=== PATIENT | male | born 1950 | race Caucasian/White ===

== ENCOUNTER 2018-06-26 22:47 | Emergency (ER) | payer OTHER ==
[~2018-06-26] VITALS: Ht 175.3 cm; Wt 68.0 kg
[2018-06-26] MEDS ORDERED: TETANUS-DIPTH-ACEL PERTUSSIS 0.5ML SYRG IM ONE (23:15)
[2018-06-26] MEDS ORDERED: MORPHINE SULFATE 4 MG/ML SYR/VIAL IV ONE (23:15)
[2018-06-26] MEDS ORDERED: ONDANSETRON HCL 4 MG/2 ML VIAL IV ONE (23:15)
[2018-06-26] MEDS ORDERED: MORPHINE SULF INJ 2 MG/ML SYRINGE 1ML ONE (23:33)
[2018-06-27] MEDS ORDERED: SODIUM CHLORIDE 0.9% 1,000 ML IV ONE (00:30)
[2018-06-27] MEDS ORDERED: MORPHINE SULF INJ 2 MG/ML SYRINGE 1ML ONE (00:56)
[2018-06-27] MEDS ORDERED: MORPHINE SULFATE 4 MG/ML SYR/VIAL IV ONE (01:15)
[2018-06-27 03:39] VITALS: BP 129/77
== END 2018-06-27 03:50 | disposition short-term general hospital (02) ==
LOC: ER 22:50
DX: T23.201A Burn of second degree of right hand, unspecified site, initial encounter (principal); T21.24XA Burn of second degree of lower back, initial encounter; T21.25XA Burn of second degree of buttock, initial encounter; T31.11 Burns involving 10-19% of body surface with 10-19% third degree burns; X03.8XXA Other exposure to controlled fire, not in building or structure, initial encounter; Y93.89 Activity, other specified; Y92.89 Other specified places as the place of occurrence of the external cause; Y99.8 Other external cause status
CPT/HCPCS: 36600; 71045; 82805; 90471; 90715; 96374; 96375; 96376; 99291; J2270; J2405; J7030

== ENCOUNTER 2018-10-08 17:39 | Emergency (ER) | payer OTHER ==
[~2018-10-08] VITALS: Ht 167.6 cm; Wt 68.0 kg
[2018-10-08] MEDS ORDERED: cloNIDine HCL 0.1 MG TAB PO ONE (18:30)
[2018-10-08 18:42] LABS: Basophils # (auto) 0 uL; Basophils % (auto) 0.6 % (0.0-2.0); Eosinophils # (auto) 0.2 uL; Hematocrit 43.8 % (41.0-53.0); Hemoglobin 14.6 g/dL (13.5-17.5); Lymphocytes # (auto) 1.3 uL; Lymphocytes % (auto) 17.4 % (10.0-50.0); Mean Corpuscular Hgb Conc. 33.3 g/dL (32.0-36.0); Mean Corpuscular Volume 96.2 fL (80.0-100.0); Monocytes # (auto) 0.8 uL; Monocytes % (auto) 10.9 % (0.0-12.0); Neutrophils # (auto) 4.9 uL; Neutrophils % (auto) 68.1 % (37.0-80.0); Platelet Count (auto) 215 10^3/uL (140-450); Red Blood Cells 4.55 10^6/uL (4.5-5.90); Red Cell Distribution Width 14.5 % (11.8-14.3); White Blood Cell 7.2 10^3/uL (4.4-10.8)
[2018-10-08 18:58] LABS: Albumin 3.8 g/dL (3.4-5.0); Anion Gap 9 (5-15); Blood Urea Nitrogen 15 mg/dL (7-18); Calcium 8.4 mg/dL (8.5-10.1); Carbon Dioxide 23 mmol/L (21-32); Chloride 109 mmol/L (98-107); Glucose 92 mg/dL (74-106); Potassium 3.8 mmol/L (3.5-5.1); Sodium 141 mmol/L (136-145)
[2018-10-08 19:03] LABS: Alanine Aminotransferase 14 U/L (16-61); Alkaline Phosphatase 67 U/L (45-117); Aspartate Aminotransferase 17 U/L (15-37); BUN/Creatinine Ratio 14.2; Bilirubin, Total 0.2 mg/dL (0.2-1.0); GFR African American 89 mL/min; GFR Non-African American 73 mL/min; Total Protein 7.9 g/dL (6.4-8.2)
[2018-10-08] MEDS ORDERED: hydrALAZINE HCL 20 MG/ML VL IV ONE (20:15)
[2018-10-08] MEDS ORDERED: ONDANSETRON HCL 4 MG/2 ML VIAL IV ONE (20:15)
[2018-10-08 22:10] LABS: Urine WBC None Seen /hpf (0 - 3)
[2018-10-08 22:21] LABS: Urine Bacteria NONE SEEN /hpf (None Seen); Urine Blood Negative /uL (Negative); Urine Specific Gravity 1.011 (1.001-1.035)
[2018-10-08 23:31] VITALS: BP 125/62
== END 2018-10-08 23:38 | disposition home or self-care (01) ==
LOC: ER 17:39 → EDBD 17:39 → ER 23:38
DX: I10 Essential (primary) hypertension (principal); R42 Dizziness and giddiness; R06.02 Shortness of breath
CPT/HCPCS: 36415; 36600; 71045; 80053; 81001; 82805; 83880; 84484; 85025

== ENCOUNTER 2019-01-14 16:34 | Emergency (ER) | payer OTHER ==
[~2019-01-14] VITALS: Ht 175.3 cm; Wt 68.0 kg
[2019-01-14 18:08] LABS: Basophils # (auto) 0 uL; Basophils % (auto) 0.5 % (0.0-2.0); Eosinophils # (auto) 0.2 uL; Eosinophils % (auto) 2.4 % (0.0-7.0); Hematocrit 38.2 % (41.0-53.0); Lymphocytes # (auto) 1.1 uL; Lymphocytes % (auto) 14.4 % (10.0-50.0); Mean Corpuscular Hemoglobin 32.8 pg (28.0-32.0); Mean Corpuscular Volume 96.4 fL (80.0-100.0); Monocytes # (auto) 0.8 uL; Monocytes % (auto) 10.5 % (0.0-12.0); Neutrophils # (auto) 5.5 uL; Neutrophils % (auto) 72.2 % (37.0-80.0); Nucleated Red Blood Cells % 0.1 %; Platelet Count (auto) 187 10^3/uL (140-450); Red Blood Cells 3.96 10^6/uL (4.5-5.90); Red Cell Distribution Width 14.3 % (11.8-14.3); White Blood Cell 7.6 10^3/uL (4.4-10.8)
[2019-01-14 18:22] LABS: INR 0.95 (0.9-1.15); Partial Thromboplastin Time 27.3 sec (23.64-32.05)
[2019-01-14 18:27] LABS: Albumin 3.6 g/dL (3.4-5.0); Anion Gap 8 (5-15); Blood Urea Nitrogen 17 mg/dL (7-18); Calcium 8.5 mg/dL (8.5-10.1); Carbon Dioxide 26 mmol/L (21-32); Chloride 108 mmol/L (98-107); Glucose 94 mg/dL (74-106); Potassium 3.9 mmol/L (3.5-5.1); Sodium 142 mmol/L (136-145)
[2019-01-14 18:34] LABS: Alanine Aminotransferase 13 U/L (16-61); Alkaline Phosphatase 62 U/L (45-117); Aspartate Aminotransferase 12 U/L (15-37); BUN/Creatinine Ratio 20.7; Bilirubin, Total 0.3 mg/dL (0.2-1.0); GFR African American 119 mL/min; GFR Non-African American 99 mL/min; Total Protein 7.3 g/dL (6.4-8.2)
[2019-01-14] MEDS ORDERED: cloNIDine HCL 0.1 MG TAB PO ONE ×2 (18:45)
[2019-01-14 19:10] VITALS: BP 157/81
== END 2019-01-14 19:12 | disposition home or self-care (01) ==
LOC: ER 16:34
DX: I10 Essential (primary) hypertension (principal)
CPT/HCPCS: 36415; 80053; 84484; 85025; 85610; 85730

== ENCOUNTER 2019-07-09 16:34 | Emergency (ER) | payer OTHER ==
[~2019-07-09] VITALS: Ht 175.3 cm; Wt 65.8 kg
[2019-07-09 20:43] LABS: Basophils # (auto) 0.1 uL; Basophils % (auto) 0.8 % (0.0-2.0); Eosinophils # (auto) 0.2 uL; Hemoglobin 14.6 g/dL (13.5-17.5); Lymphocytes # (auto) 2.1 uL; Mean Corpuscular Hgb Conc. 34.7 g/dL (32.0-36.0); Monocytes # (auto) 0.8 uL; Monocytes % (auto) 9.8 % (0.0-12.0); Neutrophils # (auto) 5.1 uL; Neutrophils % (auto) 61.4 % (37.0-80.0); Platelet Count (auto) 211 10^3/uL (140-450); Red Blood Cells 4.42 10^6/uL (4.5-5.90); Red Cell Distribution Width 13.6 % (11.8-14.3); White Blood Cell 8.3 10^3/uL (4.4-10.8)
[2019-07-09 21:01] LABS: Alanine Aminotransferase 16 U/L (16-61); Anion Gap 7 (5-15); Aspartate Aminotransferase 13 U/L (15-37); BUN/Creatinine Ratio 18.8; Blood Urea Nitrogen 21 mg/dL (7-18); Carbon Dioxide 28 mmol/L (21-32); Chloride 104 mmol/L (98-107); GFR African American 83 mL/min; GFR Non-African American 69 mL/min; Glucose 94 mg/dL (74-106); Potassium 3.9 mmol/L (3.5-5.1); Sodium 139 mmol/L (136-145)
[2019-07-09 21:05] LABS: Alkaline Phosphatase 82 U/L (45-117); Bilirubin, Total 0.4 mg/dL (0.2-1.0); Total Protein 8.2 g/dL (6.4-8.2)
[2019-07-10 00:22] VITALS: BP 159/57
== END 2019-07-10 00:28 | disposition left against medical advice (07) ==
LOC: ER 16:34
DX: I10 Essential (primary) hypertension (principal); F41.9 Anxiety disorder, unspecified
CPT/HCPCS: 36415; 71045; 80053; 84484; 85025

== ENCOUNTER 2019-09-13 17:12 | Emergency (ER) | payer OTHER ==
[~2019-09-13] VITALS: Ht 175.3 cm; Wt 65.8 kg
[2019-09-13 17:33] VITALS: BP 131/60
== END 2019-09-13 18:09 | disposition home or self-care (01) ==
LOC: ER 17:12
DX: I10 Essential (primary) hypertension (principal)
CPT/HCPCS: 93005

== ENCOUNTER → 2019-10-06 | Emergency (ER) | payer OTHER ==
[~2019-10-06] VITALS: Ht 175.3 cm; Wt 66.7 kg
[2019-10-06 16:55] LABS: Basophils # (auto) 0 10 ^3/uL (0-0.2); Basophils % (auto) 0.2 % (0.0-2.0); Eosinophils # (auto) 0.1 10 ^3/uL (0-0.8); Eosinophils % (auto) 0.8 % (0.0-7.0); Hematocrit 42.2 % (41.0-53.0); Hemoglobin 14.3 g/dL (13.5-17.5); Lymphocytes # (auto) 1.4 10 ^3/uL (0.4-5.4); Lymphocytes % (auto) 13.1 % (10.0-50.0); Mean Corpuscular Hemoglobin 31.9 pg (28.0-32.0); Mean Corpuscular Hgb Conc. 33.9 g/dL (32.0-36.0); Mean Corpuscular Volume 94.1 fL (80.0-100.0); Neutrophils % (auto) 75.9 % (37.0-80.0); Platelet Count (auto) 212 10^3/uL (140-450); Red Blood Cells 4.48 10^6/uL (4.5-5.90); Red Cell Distribution Width 13.1 % (11.8-14.3); White Blood Cell 10.5 10^3/uL (4.4-10.8)
[2019-10-06 17:20] LABS: Alanine Aminotransferase 15 U/L (16-61); Albumin 3.8 g/dL (3.4-5.0); Anion Gap 10 (5-15); Blood Urea Nitrogen 28 mg/dL (7-18); Calcium 9.1 mg/dL (8.5-10.1); Carbon Dioxide 27 mmol/L (21-32); Chloride 100 mmol/L (98-107); Glucose 97 mg/dL (74-106); Potassium 4.1 mmol/L (3.5-5.1); Sodium 137 mmol/L (136-145)
[2019-10-06 17:25] LABS: Alkaline Phosphatase 99 U/L (45-117); Aspartate Aminotransferase 14 U/L (15-37); BUN/Creatinine Ratio 23.9; Bilirubin, Total 0.7 mg/dL (0.2-1.0); GFR African American 79 mL/min; GFR Non-African American 65 mL/min; Total Protein 8.5 g/dL (6.4-8.2)
[2019-10-06 18:29] VITALS: BP 162/70
== END | disposition home or self-care (01) ==
LOC: ER 15:33
DX: R00.2 Palpitations (principal); F41.9 Anxiety disorder, unspecified; I10 Essential (primary) hypertension
CPT/HCPCS: 36415; 71045; 80053; 84484; 85025; 93005